=== PATIENT | male | born 1960 | race African-American/Black ===

== ENCOUNTER 2022-10-27 05:18 | Emergency (ER) | payer SELFPAY ==
[~2022-10-27] VITALS: Ht 175.3 cm; Wt 96.5 kg
[~2022-10-27 05:18] MED LIST: NOCURR
[2022-10-27] MEDS ORDERED: LIDOCAINE 5% TRANSDERMAL PATCH TD ONE (06:30)
[2022-10-27] MEDS ORDERED: ACETAMINOPHEN 500 MG TABLET PO ONE (06:30)
[2022-10-27 10:00] VITALS: BP 125/77
== END 2022-10-27 10:59 | disposition home or self-care (01) ==
LOC: EMS 05:19
DX: R51.9 Headache, unspecified (principal); V49.9XXA Car occupant (driver) (passenger) injured in unspecified traffic accident, initial encounter; W22.10XA Striking against or struck by unspecified automobile airbag, initial encounter; Y93.89 Activity, other specified; Y92.89 Other specified places as the place of occurrence of the external cause; Y99.8 Other external cause status
CPT/HCPCS: 70450; 72125; 72131; 73502; 99284